=== PATIENT | male | born 1975 | race Caucasian/White ===

== ENCOUNTER 2023-10-28 18:25 | Observation (INO) ==
[2023-10-28] MEDS ORDERED: IOPAMIDOL 100 ML BOTTLE IV ONE (18:26)
[2023-10-28] MEDS: ONDANSETRON 4 MG/2 ML VIAL IV ONE (19:13)
[2023-10-28] MEDS: 0.9 % SODIUM CHLORIDE 1,000 ML IV ONE (19:13)
[2023-10-28] MEDS: HYDROmorphone 0.5 MG/0.5 ML SYRINGE IV ONE (19:46)
[2023-10-28 19:50] LABS: Appearance,Urine Clear (Clear); Bacteria,Urine 0 /hpf (0); Bilirubin,Urine Negative (Negative); Color,Urine Yellow; Glucose,Urine (UA) Negative (Negative); Ketones,Urine 15 mg/dL (Negative); Leukocyte Esterase,Urine Negative /uL (Negative); Nitrate,Urine Negative (Negative); Protein,Urine Negative (Negative); Specific Gravity,Urine 1.015 (1.000-1.035); Urine Blood Negative ery/mcL (Negative); Urine RBC 0 /hpf (0-3); Urine Squamous Epithelial Cell 2 /hpf (0-4); Urine WBC 0 /hpf (0-4); Urobilinogen,Urine Normal
[2023-10-28] MEDS ORDERED: morphine 2 MG/ML VIAL IV PRN (22:27)
[2023-10-28] MEDS: METOCLOPRAMIDE 10 MG/2 ML VIAL IV SCH (23:19)
[2023-10-28] MEDS: 0.9 % SODIUM CHLORIDE 1,000 ML IV SCH (23:19)
[2023-10-28] MEDS: HYDROmorphone 1 MG/ML SYRINGE IV PRN (23:19)
[2023-10-29] MEDS: ONDANSETRON 4 MG/2 ML VIAL IV PRN (00:35)
[2023-10-29 06:11] LABS: Basophils # (Auto) 0.02 K/mcL (0.00-0.30); Basophils % (Auto) 0.3 % (0.0-2.0); Eosinophils # (Auto) 0.26 K/mcL (0.00-0.70); Eosinophils % (Auto) 4.4 % (0.0-7.0); Hematocrit 40.8 % (40.1-51.0); Lymphocytes # (Auto) 2.19 K/mcL (1.50-4.80); Lymphocytes % (Auto) 36.9 % (15.5-49.0); Mean Cell Volume 91.9 fL (80.0-100.0); Mean Corpuscular HGB Conc 31.9 g/dL (31.0-36.0); Mean Platelet Volume 11.2 fL (8.8-12.5); Monocytes # (Auto) 0.71 K/mcL (0.10-0.90); Neutrophils % (Auto) 46.2 % (38.0-78.0); Platelet Count 210 K/mcL (140-440); RBC 4.44 M/mcL (4.63-6.08); WBC 5.9 K/mcL (4.5-11.0)
[2023-10-29] MEDS ORDERED: METHOCARBAMOL 750 MG TABLET PO PRN (14:28)
[2023-10-29] MEDS ORDERED: cloNIDine HCL 0.1 MG TABLET PO PRN (14:41)
[2023-10-29] MEDS: GABAPENTIN 300 MG CAPSULE PO SCH (15:05)
[2023-10-29] MEDS: PYRIDOSTIGMINE BROMIDE 10 MG/2 ML AMPUL IV SCH (15:05)
[2023-10-29] MEDS: BUPRENORPHINE/NALOXONE 4MG/1MG ORAL FILM SL SCH (15:06)
[2023-10-29] MEDS: POLYETHYLENE GLYCOL 3350 17 GM PACKET PO SCH (15:10)
[2023-10-29] MEDS: traZODone HCL 100 MG TABLET PO SCH (21:26)
[2023-10-29] MEDS: ACAMPROSATE 333 MG PO SCH (21:27)
[2023-10-30] MEDS: TAMSULOSIN 0.4 MG CAPSULE PO SCH (08:40)
[2023-10-30] MEDS: lamoTRIgine 100 MG TABLET PO SCH (08:40)
[2023-10-30] MEDS: ONDANSETRON 4 MG/2 ML VIAL IV PRN (08:40)
[2023-10-30] MEDS ORDERED: DIATRIZOATE MEGLU/DIATRIZO SOD 120ML BOTTLE PO ONE (12:31)
== END 2023-10-30 13:38 | disposition home or self-care (01) ==
LOC: ED 18:25 → MEDSUR 22:43 → INTOOBSV 22:43
PROVIDERS: ADMIT Family Medicine Adult Medicine; ATTEND Family Medicine Adult Medicine